=== PATIENT | female | born 1935 | race Caucasian/White ===

== ENCOUNTER 2017-05-01 18:14 | Observation (INO) | payer MEDICARE, MEDICAID ==
[2017-05-01 18:22] VITALS: BMI 24.2
--- NOTE | 2017-05-01 19:56 | C.PDOC ---
History Of Present Illness 81 y/o female sent to ED from [facility] for evaluation of abdominal pain and abnormal blood work. Pmhx left femur fracture, seizures and dementia. Pt currently denies any pain. History limited due to clinical condition. Time Seen by Provider: 05/01/17 19:55 Chief Complaint (Nursing): Abnormal Labs History Per: Patient History/Exam Limitations: clinical condition Severity: None Pain Scale Rating Of: 0 Recent travel outside of the [place]: No Additional History Per: [facility] Past Medical History Reviewed: Historical Data, Nursing Documentation, Vital Signs Vital Signs: Last Vital Signs Temp 97.7 F 05/01/17 22:15 Pulse 70 05/01/17 22:13 Resp 16 05/01/17 22:13 BP 152/59 H 05/01/17 22:13 Pulse Ox 98 05/01/17 22:15 - Medical History PMH: Anemia, CAD, CVA (affecting left side of body), Dementia, Diabetes, HTN, Hypercholesterolemia, Osteoporosis, Seizures, TIA - [facility] Procedures DX ULTRASOUND-HEART (09/28/14) INFLUENZA VACCINATION (09/28/14) INSERTION OF INFUSION DEV INTO INF VENA CAVA, PERC APPROACH (01/27/16) REPOSITION LEFT UPPER FEMUR WITH INTRAMED FIX, OPEN APPROACH (01/28/17) Family History: States: Unknown Family Hx - Social History Hx Tobacco Use: No Hx Alcohol Use: No Hx Substance Use: No - Immunization History Hx Tetanus Toxoid Vaccination: No Hx Influenza Vaccination: Yes (01/27/2017) Hx Pneumococcal Vaccination: No Review Of Systems Review Of Systems: ROS cannot be obtained secondary to pt's inabilty to answer questions. Gastrointestinal: Negative for: Abdominal Pain Physical Exam - Physical Exam Appears: Non-toxic Skin: Warm, Dry, No Rash Head: Atraumatic, Normacephalic Neck: Supple Chest: Symmetrical Cardiovascular: Rhythm Regular, No Murmur Respiratory: No Rales, No Rhonchi, No Wheezing Gastrointestinal/Abdominal: Soft, No Tenderness Extremity: Capillary Refill (<2 seconds), No Swelling, Other (Left hip nontender , flexed and externally rotated. Left knee with arthritic changes, no obvious pain) Pulses: Left Dorsalis Pedis: Normal, Right Dorsalis Pedis: Normal Neurological/Psych: No Oriented x3 (x2) ED Course And Treatment - Laboratory Results Result Diagrams: 05/01/17 20:43 05/01/17 20:43 ECG: Interpreted By Me, Viewed By Me ECG Rhythm: Nonspecific Changes O2 Sat by Pulse Oximetry: 100 (room air) Pulse Ox Interpretation: Normal - Other Rad kub X-Ray: Interpreted by Me, Viewed By Me Interpretation: lots of stool , no obstr or free air Disposition Discussed With : Quin Dhaliwal Comment: accepted the pt on his service and took over the care at 9:46 PM Doctor Will See Patient In The: Hospital Counseled Patient/Family Regarding: Studies Performed, Diagnosis - Disposition Disposition: HOSPITALIZED Disposition Time: 19:56 Condition: FAIR - Clinical Impression Clinical Impression: Abdominal pain, Anemia, Dehydration - Scribe Statement The provider has reviewed the documentation as recorded by the Vipin Pittman Provider Attestation: All medical record entries made by the Vipin were at my direction and personally dictated by me. I have reviewed the chart and agree that the record accurately reflects my personal performance of the history, physical exam, medical decision making, and the department course for this patient. I have also personally directed, reviewed, and agree with the discharge instructions and disposition. Decision To Admit - Pt Status Changed To: Hospital Disposition Of: Observation - . Bed Request Type: Regular Admitting Physician: Quin Dhaliwal Patient Diagnosis: Abdominal pain, Anemia, Dehydration
[2017-05-01 20:50] LABS: BASO # 0.1 K/uL (0.0-0.2); BASO % 0.8 % (0.0-2.0); EOS # 0.9 K/uL (0.0-0.7); EOS % 5.6 % (0.0-4.0); LYMPH # 2.6 K/uL (1.0-4.3); MEAN CELL VOLUME 79.8 fL (81.0-99.0); MEAN CORPUSCULAR HEMOGLOBIN 24.9 pg (27.0-31.0); MEAN CORPUSCULAR HGB CONC 31.2 g/dL (33.0-37.0); MEAN PLATELET VOLUME 6.8 fL (7.2-11.7); MONO # 1.3 K/uL (0.0-0.8); MONO % 8.3 % (0.0-10.0); RED CELL DISTRIBUTION WIDTH 14.3 % (11.5-14.5); WHITE BLOOD COUNT 15.3 K/uL (4.8-10.8)
[2017-05-01] MEDS: Sodium Chloride 0.9% 1,000 ML IV SCH (20:56)
[2017-05-01] MEDS ORDERED: Sodium Chloride 0.9% 1,000 ML ONE (20:56)
[2017-05-01 21:32] LABS: POTASSIUM 4.8 mmol/L (3.6-5.2)
[2017-05-01 21:34] LABS: BILIRUBIN,TOTAL 0.6 mg/dL (0.2-1.3)
[2017-05-01 21:35] LABS: ALB/GLOB RATIO 0.9 (1.0-2.1); CALCIUM 8.5 mg/dl (8.6-10.4); TOTAL PROTEIN 6.5 g/dL (6.3-8.3)
[2017-05-01] MEDS ORDERED: Diclofenac Sodium Delayed Release 50 mg EC Tab PO PRN (22:28)
[2017-05-02 02:07] VITALS: O2SAT 100
[2017-05-02] MEDS: Sodium Chloride 0.9% 1,000 ML IV SCH ×2 (07:22→16:15)
--- NOTE | 2017-05-02 07:58 | CP.PCM.CON ---
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 [employer] pit recorder [id number] utilized to converse with patient. 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 The patient cannot tell me why she was sent to the hospital and is unsure where she is presently. She denies any abdominal pain and continues to state that her main concern is left knee pain which has been ongoing for 3-4 months. Denies any falls recently following her last admission. Lab work performed in the ED does reveal a microcytic anemia (7.2 with MCV 79.8) , downtrending from prior admission in January (HGB 9 at that time) as well as JAKOB with Cr 1.5. Of note, patient has been on Diclofenac TID for knee pain. The patient denies any dark or bloody stools and states she is moving her bowels regularly. Plain film of the abdomen does reveal constipation and fecal retention. PMHx: See HPI PSHx: L hip ORIF and intramedullary peritrochanteric rodding (01/2017) FHx: Unable to assess Social: Denies tobacco, EtOH or illicit drug use Endo: Denies prior evaluations Review of Systems - Review of Systems Systems not reviewed;Unavailable: Dementia (limited 2/2 dementia) - Constitutional Constitutional: absent: Chills, Fever - Gastrointestinal Gastrointestinal: absent: Abdominal Pain, Change in Bowel Habits, Constipation, Diarrhea, Dyspepsia, Dysphagia, Hematemesis, Hematochezia, Melena, Nausea, Vomiting - Genitourinary Genitourinary: absent: Dysuria, Urinary Frequency, Urinary Urgency - Musculoskeletal Musculoskeletal: Joint Swelling, Muscle Weakness, Stiffness, Other (left knee pain/swelling) Past Patient History - Past Medical History & Family History Past Medical History?: Yes - Past Social History Smoking Status: Never Smoked - CARDIAC Hx Hypercholesterolemia: Yes Hx Hypertension: Yes - PULMONARY Hx Respiratory Disorders: No - NEUROLOGICAL Hx Dementia: Yes Hx Seizures: Yes Hx Transient Ischemic Attacks (TIA): Yes - HEENT Hx HEENT Problems: No - RENAL Hx Chronic Kidney Disease: No - ENDOCRINE/METABOLIC Hx Diabetes Mellitus Type 2: Yes - HEMATOLOGICAL/ONCOLOGICAL Hx Anemia: Yes - INTEGUMENTARY Hx Dermatological Problems: No - MUSCULOSKELETAL/RHEUMATOLOGICAL Hx Fractures: Yes Hx Osteoporosis: Yes - GASTROINTESTINAL Hx Gastrointestinal Disorders: Yes Hx Gastroesophageal Reflux: Yes (WITHOUT ESOPHAGITIS) - GENITOURINARY/GYNECOLOGICAL Hx Genitourinary Disorders: Yes Hx Urinary Tract Infection: Yes - PSYCHIATRIC Hx Substance Use: No - SURGICAL HISTORY Hx Surgeries: Yes Hx Joint Replacement: Yes Other/Comment: LEFT HIP ARTIFICIAL JOINT - 02/01/2017 - ANESTHESIA Hx Anesthesia: Yes Hx Anesthesia Reactions: No Hx Malignant Hyperthermia: No Meds Allergies/Adverse Reactions: Allergies Allergy/AdvReac Type Severity Reaction Status Date / Time No Known Allergies Allergy Verified 05/01/17 18:21 - Medications Medications: Current Medications Aspirin (Ecotrin) 81 mg PO DAILY [facility] Atenolol (Tenormin) 50 mg PO DAILY [facility] Clonidine HCl (Catapres) 0.2 mg PO TID [facility] Clopidogrel Bisulfate (Plavix) 75 mg PO DAILY [facility] Diclofenac Sodium (Voltaren) 75 mg PO TID PRN PRN Reason: Pain, Mild (1-3) Last Admin: 05/02/17 04:14 Dose: 75 mg Docusate Sodium (Colace) 100 mg PO BID [facility] Glipizide (Glucotrol Xl) 2.5 mg PO QAM [facility] Home Med (Melatonin [Melatonin]) 10 mg PO HS [facility] Hydrochlorothiazide (Microzide) 12.5 mg PO DAILY [facility] Sodium Chloride (Sodium Chloride 0.9%) 1,000 mls @ 100 mls/hr IV .Q10H [facility] Last Admin: 05/02/17 07:22 Dose: Not Given Levetiracetam (Keppra) 500 mg PO BID [facility] Losartan Potassium (Cozaar) 50 mg PO DAILY [facility] Pantoprazole Sodium (Protonix Inj) 40 mg IVP DAILY [facility] Phenytoin (Dilantin) 100 mg PO TID [facility] Rosuvastatin Calcium (Crestor) 10 mg PO HS [facility] Spironolactone (Aldactone) 50 mg PO DAILY [facility] Zolpidem Tartrate (Ambien) 5 mg PO HS PRN PRN Reason: Insomnia Last Admin: 05/02/17 01:23 Dose: 5 mg Physical Exam - Constitutional Appears: No Acute Distress, Confused - Eye Exam Eye Exam: EOMI, PERRL - ENT Exam ENT Exam: Mucous Membranes Dry - Respiratory Exam Respiratory Exam: Clear to Auscultation Bilateral. absent: Rales, Rhonchi, Wheezes - Cardiovascular Exam Cardiovascular Exam: RRR, +S1, +S2 - GI/Abdominal Exam GI & Abdominal Exam: Normal Bowel Sounds, Soft. absent: Distended, Firm, Guarding, Organomegaly, Rigid, Tenderness - Extremities Exam Extremities exam: Positive for: joint swelling, tenderness Additional comments: significant swelling, deformity noted in the left knee, limited in ROM; LUE 0/5 - Neurological Exam Neurological exam: Altered - Psychiatric Exam Psychiatric exam: Agitated, Anxious - Skin Skin Exam: Dry, Warm Results - Vital Signs Recent Vital Signs: Last Vital Signs Temp 97.7 F 05/02/17 02:06 Pulse 70 05/02/17 02:06 Resp 20 05/02/17 02:06 BP 177/54 H 05/02/17 02:06 Pulse Ox 100 05/02/17 02:06 - Labs Result Diagrams: 05/01/17 20:43 05/01/17 20:43 Labs: Laboratory Results - last 24 hr 05/02/17 06:21 POC Glucose (mg/dL) 133 H Assessment & Plan - Assessment and Plan (Free Text) Assessment: Patient is an 81yo Gujarati speaking female with PMHx significant for recent left hip intertrochanteric fx requiring ORIF and intramedullary peritrochanteric rodding (01/2017), DMT2, HTN, 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, seizure d/o, vascular dementia, left frontal meningioma, cholelithiasis, 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 who presented [place] for anemia noted on routine lab work and abdominal pain but is presently only complaining of knee pain -Impaction fracture of left distal femur -JAKOB -Abdominal pain, resolved -Cholelithiasis, with large stone 2.1cm -Microcytic anemia -Subtherapeutic on dilantin -Prior CVA, on plavix -Vascular dementia -HTN -DMT2 -Osteoporosis Plan: -Discontinue all NSAIDs in setting of prior abdominal pain, microcytic anemia and JAKOB; consider discontinuation of ARB, diuretics as well in this setting and consider nephrology evaluation -D/C protonix given h/o osteoporosis and JAKOB; H2 nicola PRN -Abdominal U/S ordered and reviewed - pending official read - by my interpretation appears to have large gallstone in GB; consider surgical evaluation if needed; asymptomatic at present -Check Hepatitis serologies -Check Iron level, TIBC, Ferritin, Transferrin -Type and screen in case of needed transfusion -CT left knee reviewed; recommend orthopedic evaluation for impacted femur -The patient would not be a candidate for routine screening colonoscopy but in the setting of microcytic anemia, she would benefit from EGD/colonoscopy evaluation on an elective basis as there is no active bleeding noted presently and her other medical issues are more pressing at this time - Date & Time Date: 05/02/17 Time: 07:30 <Elmer Gaspar - Last Filed: 05/02/17 11:28> Meds - Medications Medications: Current Medications Aspirin (Ecotrin) 81 mg PO DAILY [facility] Last Admin: 05/02/17 10:16 Dose: 81 mg Atenolol (Tenormin) 50 mg PO DAILY [facility] Last Admin: 05/02/17 10:16 Dose: 50 mg Clonidine HCl (Catapres) 0.2 mg PO TID [facility] Last Admin: 05/02/17 10:16 Dose: 0.2 mg Clopidogrel Bisulfate (Plavix) 75 mg PO DAILY [facility] Last Admin: 05/02/17 10:15 Dose: 75 mg Docusate Sodium (Colace) 100 mg PO BID [facility] Last Admin: 05/02/17 10:16 Dose: 100 mg Famotidine (Pepcid) 20 mg PO BID PRN PRN Reason: Dyspepsia Last Admin: 05/02/17 10:16 Dose: 20 mg Glipizide (Glucotrol Xl) 2.5 mg PO QAM [facility] Hydrochlorothiazide (Microzide) 12.5 mg PO DAILY [facility] Last Admin: 05/02/17 10:16 Dose: 12.5 mg Sodium Chloride (Sodium Chloride 0.9%) 1,000 mls @ 100 mls/hr IV .Q10H [facility] Last Admin: 05/02/17 07:22 Dose: Not Given Levetiracetam (Keppra) 500 mg PO BID [facility] Losartan Potassium (Cozaar) 50 mg PO DAILY [facility] Last Admin: 05/02/17 10:16 Dose: 50 mg Phenytoin (Dilantin) 100 mg PO TID [facility] Last Admin: 05/02/17 10:16 Dose: 100 mg Rosuvastatin Calcium (Crestor) 10 mg PO HS [facility] Spironolactone (Aldactone) 50 mg PO DAILY [facility] Last Admin: 05/02/17 10:16 Dose: 50 mg Zolpidem Tartrate (Ambien) 5 mg PO HS PRN PRN Reason: Insomnia Last Admin: 05/02/17 01:23 Dose: 5 mg Results - Vital Signs Recent Vital Signs: Last Vital Signs Temp 97.7 F 05/02/17 02:06 Pulse 70 05/02/17 02:06 Resp 20 05/02/17 02:06 BP 177/54 H 05/02/17 02:06 Pulse Ox 100 05/02/17 02:06 - Labs Result Diagrams: 05/01/17 20:43 05/01/17 20:43 Labs: Laboratory Results - last 24 hr 05/02/17 06:21 POC Glucose (mg/dL) 133 H Attending/Attestation - Attestation I have personally seen and examined this patient.: Yes I have fully participated in the care of the patient.: Yes I have reviewed all pertinent clinical information: Yes Notes (Text): Patient seen and examined with GI fellow. Agree with his note as documented above with the following additions/exceptions. This is an 81 year old female with h/o recent ORIF, HTN, diabetes, prior stroke, seizure d/o, cholelithiasis [facility]. She is found to have impacted fracture of L knee. She is a poor historian, but denies any current abdominal pain, nausea or vomiting. Her is present at bedside to corroborate history--she previously had symptoms of abdominal pain, but none currently. No bloody bowel movements. She is found to have microcytic anemia. Recommend anemia work up with iron studies, stool for occult blood. She has elevated Alk P/AST, will check hepatitis panel and abdominal sonogram. She may ultimately benefit from endoscopic evaluation of anemia (no reported prior EGD/ colonoscopy), which can be done on an elective basis. Follow up orthopedic recommendations for distal femur fracture. 05/02/17 11:28
[2017-05-02] MEDS ORDERED: Diclofenac Sodium Delayed Release 75 mg EC Tab PO PRN (08:42)
--- NOTE | 2017-05-02 09:13 | CT ---
PROCEDURE: HISTORY: pain, poss fx COMPARISON: None TECHNIQUE: FINDINGS: Severe impaction fracture of the distal femur with volar displacement of the femoral shaft.. Accompanying joint effusion with severe tricompartmental degenerative changes with joint space narrowing, spur formation and multiple loose bodies. No other acute fracture deformity is observed. IMPRESSION: Severe impaction fracture of the distal femur.
[2017-05-02] MEDS: Phenytoin 100 mg/4 ml Oral Susp UD PO SCH ×3 (10:16→18:55)
--- NOTE | 2017-05-02 10:49 | US ---
HISTORY: eval liver parenchyma, gallbladder COMPARISON: None. TECHNIQUE: Sonographic evaluation of the abdomen. FINDINGS: LIVER: Measures cm. Normal echogenicity of the liver parenchyma. No mass. No intrahepatic bile duct dilatation. GALLBLADDER: Gallstones. No wall thickening or pericholecystic fluid. COMMON BILE DUCT: Measures mm. No stones. No dilatation. PANCREAS: Unremarkable as visualized. No mass. No ductal dilatation. RIGHT KIDNEY: Measures cm. Normal echogenicity. No calculus, mass, or hydronephrosis. LEFT KIDNEY: Measures cm. Normal echogenicity. No calculus, mass, or hydronephrosis. SPLEEN: Normal in size and contour. No mass. AORTA: No aneurysmal dilatation. IVC: Unremarkable. OTHER FINDINGS: None. IMPRESSION: Cholelithiasis.
--- NOTE | 2017-05-02 11:23 | CP.PCM.HP ---
Past Patient History - Past Medical History & Family History Past Medical History?: Yes - Past Social History Smoking Status: Never Smoked - CARDIAC Hx Hypercholesterolemia: Yes Hx Hypertension: Yes - PULMONARY Hx Respiratory Disorders: No - NEUROLOGICAL Hx Dementia: Yes Hx Seizures: Yes Hx Transient Ischemic Attacks (TIA): Yes - HEENT Hx HEENT Problems: No - RENAL Hx Chronic Kidney Disease: No - ENDOCRINE/METABOLIC Hx Diabetes Mellitus Type 2: Yes - HEMATOLOGICAL/ONCOLOGICAL Hx Anemia: Yes - INTEGUMENTARY Hx Dermatological Problems: No - MUSCULOSKELETAL/RHEUMATOLOGICAL Hx Fractures: Yes Hx Osteoporosis: Yes - GASTROINTESTINAL Hx Gastrointestinal Disorders: Yes Hx Gastroesophageal Reflux: Yes (WITHOUT ESOPHAGITIS) - GENITOURINARY/GYNECOLOGICAL Hx Genitourinary Disorders: Yes Hx Urinary Tract Infection: Yes - PSYCHIATRIC Hx Substance Use: No - SURGICAL HISTORY Hx Surgeries: Yes Hx Joint Replacement: Yes Other/Comment: LEFT HIP ARTIFICIAL JOINT - 02/01/2017 - ANESTHESIA Hx Anesthesia: Yes Hx Anesthesia Reactions: No Hx Malignant Hyperthermia: No Meds Allergies/Adverse Reactions: Allergies Allergy/AdvReac Type Severity Reaction Status Date / Time No Known Allergies Allergy Verified 05/01/17 18:21 Physical Exam - Constitutional Appears: Well - Head Exam Head Exam: ATRAUMATIC, NORMAL INSPECTION, NORMOCEPHALIC - Eye Exam Eye Exam: EOMI, Normal appearance, PERRL Pupil Exam: NORMAL ACCOMODATION, PERRL - ENT Exam ENT Exam: Mucous Membranes Moist, Normal Exam - Neck Exam Neck exam: Positive for: Normal Inspection - Respiratory Exam Respiratory Exam: Decreased Breath Sounds - Cardiovascular Exam Cardiovascular Exam: REGULAR RHYTHM, +S1, +S2 - GI/Abdominal Exam GI & Abdominal Exam: Diminished Bowel Sounds, Soft - Rectal Exam Rectal Exam: Deferred Results - Vital Signs Recent Vital Signs: Last Vital Signs Temp 97.7 F 05/02/17 02:06 Pulse 70 05/02/17 02:06 Resp 20 05/02/17 02:06 BP 177/54 H 05/02/17 02:06 Pulse Ox 100 05/02/17 02:06 - Labs Result Diagrams: 05/01/17 20:43 05/01/17 20:43 Labs: Laboratory Results - last 24 hr 05/02/17 06:21 POC Glucose (mg/dL) 133 H
[2017-05-02] MEDS: levETIRAcetam 100 mg/ml (5ml) Oral Syringe PO SCH ×3 (11:30→20:59)
[2017-05-02] MEDS: GlipiZIDE 2.5 mg SR Tab PO SCH (11:31)
--- NOTE | 2017-05-02 13:42 | RAD ---
HISTORY: pain COMPARISON: No prior. FINDINGS: BOWEL: Normal. No obstruction. No free air. Mild constipation is noted. BONES: Internal fixation seen at the left hip and proximal femur. OTHER FINDINGS: Diffuse vascular calcification. IMPRESSION: Nonspecific bowel gas pattern. Mild constipation.
--- NOTE | 2017-05-02 13:57 | RAD ---
PROCEDURE: Left Knee Radiographs. HISTORY: Pain. COMPARISON: None. FINDINGS: BONES: There is acute comminuted and displaced fracture at the distal left femur. JOINTS: No evidence of dislocation. Advanced osteoarthritic changes. JOINT EFFUSION: Possible small joint effusion. OTHER FINDINGS: None. IMPRESSION: Acute comminuted and displaced fracture at the distal left femur. Advanced osteoarthritic changes.
--- NOTE | 2017-05-02 13:59 | RAD ---
PROCEDURE: Left Hip X-ray Radiographs. HISTORY: s/p hip ORIF COMPARISON: Comparison is made to the previous study dated 01/29/2017 FINDINGS: BONES: Again seen are hardware at the left hip and proximal femur. There are comminuted fracture at the left humeral intertrochanteric region. JOINTS: Mild osteoarthritic changes P SOFT TISSUES: Normal. OTHER FINDINGS: None. IMPRESSION: No significant interval change since the previous exam. Status post hardware insertion at the proximal left femur and femoral neck due to prior fracture at the base of the left femur neck.
--- NOTE | 2017-05-02 14:02 | RAD ---
PROCEDURE: AP and lateral views of the left femur. HISTORY: left distal femur fx COMPARISON: Comparison is made to the previous same-day exam. TECHNIQUE: AP and lateral four views of the left femur were obtained. FINDINGS: There is acute comminuted and displaced fracture at the distal left femur just above the femoral condyle. Internal fixation and hardware are again seen at the left humeral neck. IMPRESSION: Acute comminuted and displaced fracture at the distal left femur just above the femoral condyles. Internal fixation and hardware are again seen at the old intertrochanteric femur fracture.
[2017-05-02 17:43] LABS: BASO % 0.4 % (0.0-2.0); EOS # 0.3 K/uL (0.0-0.7); EOS % 2.3 % (0.0-4.0); HEMATOCRIT 21.9 % (34.0-47.0); LYMPH % 16.7 % (20.0-40.0); MEAN CELL VOLUME 79.5 fL (81.0-99.0); MEAN CORPUSCULAR HEMOGLOBIN 26.1 pg (27.0-31.0); MEAN CORPUSCULAR HGB CONC 32.8 g/dL (33.0-37.0); MEAN PLATELET VOLUME 6.7 fL (7.2-11.7); MONO # 0.8 K/uL (0.0-0.8); RED CELL DISTRIBUTION WIDTH 14.7 % (11.5-14.5)
[2017-05-02 17:55] LABS: IRON 39 ug/dL (37-170)
[2017-05-02 20:07] LABS: CHLORIDE 107 mmol/L (98-107); POTASSIUM 4.1 mmol/L (3.6-5.2); SODIUM 135 mmol/L (132-148)
[2017-05-02 20:10] LABS: ALB/GLOB RATIO 0.8 (1.0-2.1); ALKALINE PHOSPHATASE 168 U/L (38-126); ALT/SGPT 24 U/L (9-52); AST/SGOT 45 U/L (14-36); BILIRUBIN,TOTAL 0.6 mg/dL (0.2-1.3); BLOOD UREA NITROGEN 37 mg/dL (7-17); CALCIUM 8.1 mg/dl (8.6-10.4); CARBON DIOXIDE 17 mmol/L (22-30); GFR AFRICAN-AMERICAN > 60; GLUCOSE,RANDOM 131 mg/dL (65-105)
[2017-05-02] MEDS ORDERED: Home Med 1 UNIT (Melatonin [Melatonin] 10 MG) PO SCH ×2 (22:00)
[2017-05-03] MEDS: Sodium Chloride 0.9% 1,000 ML IV SCH ×3 (02:00→11:52)
[2017-05-03 02:34] VITALS: RESP 20
--- NOTE | 2017-05-03 07:39 | CP.PCM.PN ---
Subjective - Date & Time of Evaluation Date of Evaluation: 05/03/17 Time of Evaluation: 07:29 - Subjective Subjective: Patient seen and examined. No acute events overnight. She has dementia and is not able to participate in meaningful conversation, though she does deny abdominal pain, nausea, vomiting which was verified with nursing staff. No bowel movements overnight. She is incontinent of urine, tolerating PO diet. Review of vitals from today are normal. Review of systems not able to be performed given patient with dementia. Objective - Vital Signs/Intake and Output Vital Signs (last 24 hours): Temp Pulse Resp BP Pulse Ox 97.6 F 74 20 110/55 L 100 05/03/17 02:30 05/03/17 02:30 05/03/17 02:30 05/03/17 02:30 05/02/17 16:00 Intake and Output: 05/03/17 05/03/17 06:59 18:59 Intake Total 1885 Balance 1885 - Medications Medications: Current Medications Aspirin (Ecotrin) 81 mg PO DAILY [facility] Last Admin: 05/02/17 10:16 Dose: 81 mg Atenolol (Tenormin) 50 mg PO DAILY [facility] Last Admin: 05/02/17 10:16 Dose: 50 mg Clonidine HCl (Catapres) 0.2 mg PO TID [facility] Last Admin: 05/02/17 18:56 Dose: 0.2 mg Clopidogrel Bisulfate (Plavix) 75 mg PO DAILY [facility] Last Admin: 05/02/17 10:15 Dose: 75 mg Docusate Sodium (Colace) 100 mg PO BID [facility] Last Admin: 05/02/17 18:56 Dose: 100 mg Famotidine (Pepcid) 20 mg PO BID PRN PRN Reason: Dyspepsia Last Admin: 05/02/17 10:16 Dose: 20 mg Glipizide (Glucotrol Xl) 2.5 mg PO QAM [facility] Last Admin: 05/02/17 11:31 Dose: 2.5 mg Hydrochlorothiazide (Microzide) 12.5 mg PO DAILY [facility] Last Admin: 05/02/17 10:16 Dose: 12.5 mg Sodium Chloride (Sodium Chloride 0.9%) 1,000 mls @ 100 mls/hr IV .Q10H [facility] Last Admin: 05/03/17 06:02 Dose: 100 mls/hr Levetiracetam (Keppra) 500 mg PO BID [facility] Last Admin: 05/02/17 20:59 Dose: 500 mg Losartan Potassium (Cozaar) 50 mg PO DAILY [facility] Last Admin: 05/02/17 10:16 Dose: 50 mg Phenytoin (Dilantin) 100 mg PO TID [facility] Last Admin: 05/02/17 18:55 Dose: 100 mg Rosuvastatin Calcium (Crestor) 10 mg PO HS [facility] Last Admin: 05/02/17 21:08 Dose: 10 mg Spironolactone (Aldactone) 50 mg PO DAILY [facility] Last Admin: 05/02/17 10:16 Dose: 50 mg Zolpidem Tartrate (Ambien) 5 mg PO HS PRN PRN Reason: Insomnia Last Admin: 05/02/17 01:23 Dose: 5 mg - Labs Labs: 05/02/17 17:23 05/02/17 20:00 PT 11.2 SECONDS (9.7-12.2) 05/01/17 20:43 INR 1.0 05/01/17 20:43 APTT 25 SECONDS (21-34) 05/01/17 20:43 - Constitutional Appears: Non-toxic, No Acute Distress - Head Exam Head Exam: NORMAL INSPECTION - Eye Exam Eye Exam: EOMI, Normal appearance - ENT Exam ENT Exam: Mucous Membranes Moist - Respiratory Exam Respiratory Exam: Clear to Ausculation Bilateral - Cardiovascular Exam Cardiovascular Exam: REGULAR RHYTHM, +S1, +S2 - GI/Abdominal Exam GI & Abdominal Exam: Soft, Normal Bowel Sounds Additional comments: non tender to palpation in four quadrants - Extremities Exam Additional comments: L leg immobilized, no RLE edema - Skin Skin Exam: Dry, Intact, Normal Color, Warm Assessment and Plan - Assessment and Plan (Free Text) Assessment: HTN / DM CVA on plavix Seizure disorder Recent L hip fracture, currently has acute L distal femur fracture Vascular dementia Microcytic anemia Abdominal pain - resolved. Abdominal US reviewed by me showing cholelithiasis. Plan: - Diet as tolerated - H/H stable, s/p 1 unit PRBC transfusion, continue to monitor. No overt signs of GI bleeding noted. - LFTs stable, continue to monitor, viral hepatitis panel negative - Obtain stool occult blood - Follow up orthopedic recommendations given acute fracture and lower extremity pain - Patient would certainly benefit from endoscopic evaluation, however will defer for time being given absence of overt bleeding and patient currently on plavix. Suggest outpatient follow up after resolution of acute orthopedic issues. Will sign off case, please reconsult as necessary, thank you.
[2017-05-03 09:11] LABS: MEAN CORPUSCULAR HEMOGLOBIN 27.4 pg (27.0-31.0); MEAN CORPUSCULAR HGB CONC 33.5 g/dL (33.0-37.0); MEAN PLATELET VOLUME 6.5 fL (7.2-11.7); RED CELL DISTRIBUTION WIDTH 15.9 % (11.5-14.5); WHITE BLOOD COUNT 15.3 K/uL (4.8-10.8)
[2017-05-03 09:12] LABS: MEAN CELL VOLUME 81.9 fL (81.0-99.0)
[2017-05-03] MEDS: levETIRAcetam 100 mg/ml (5ml) Oral Syringe PO SCH (10:08)
[2017-05-03] MEDS: Phenytoin 100 mg/4 ml Oral Susp UD PO SCH ×2 (10:08→13:59)
[2017-05-03] MEDS: GlipiZIDE 2.5 mg SR Tab PO SCH (10:08)
--- NOTE | 2017-05-03 13:55 | CP.PCM.PN ---
Subjective - Date & Time of Evaluation Date of Evaluation: 05/03/17 Time of Evaluation: 14:38 - Subjective Subjective: Patient sleeping, comfortable. When awakened points to left knee. Review of Systems - Review of Systems Systems not reviewed;Unavailable: Dementia Objective - Vital Signs/Intake and Output Vital Signs (last 24 hours): Temp Pulse Resp BP Pulse Ox 98.1 F 79 20 150/61 100 05/03/17 08:00 05/03/17 08:00 05/03/17 08:00 05/03/17 08:00 05/03/17 08:00 Intake and Output: 05/03/17 05/03/17 06:59 18:59 Intake Total 1885 Balance 1885 - Medications Medications: Current Medications Aspirin (Ecotrin) 81 mg PO DAILY [facility] Last Admin: 05/03/17 10:08 Dose: 81 mg Atenolol (Tenormin) 50 mg PO DAILY [facility] Last Admin: 05/03/17 10:08 Dose: 50 mg Clonidine HCl (Catapres) 0.2 mg PO TID [facility] Last Admin: 05/03/17 13:50 Dose: Not Given Clopidogrel Bisulfate (Plavix) 75 mg PO DAILY [facility] Last Admin: 05/03/17 10:08 Dose: 75 mg Docusate Sodium (Colace) 100 mg PO BID [facility] Last Admin: 05/03/17 10:08 Dose: 100 mg Famotidine (Pepcid) 20 mg PO BID PRN PRN Reason: Dyspepsia Last Admin: 05/03/17 10:08 Dose: 20 mg Glipizide (Glucotrol Xl) 2.5 mg PO QAM [facility] Last Admin: 05/03/17 10:08 Dose: 2.5 mg Hydrochlorothiazide (Microzide) 12.5 mg PO DAILY [facility] Last Admin: 05/03/17 10:08 Dose: 12.5 mg Sodium Chloride (Sodium Chloride 0.9%) 1,000 mls @ 100 mls/hr IV .Q10H [facility] Last Admin: 05/03/17 11:52 Dose: Not Given Levetiracetam (Keppra) 500 mg PO BID [facility] Last Admin: 05/03/17 10:08 Dose: 500 mg Losartan Potassium (Cozaar) 50 mg PO DAILY [facility] Last Admin: 05/03/17 10:08 Dose: 50 mg Phenytoin (Dilantin) 100 mg PO TID [facility] Last Admin: 05/03/17 10:08 Dose: 100 mg Rosuvastatin Calcium (Crestor) 10 mg PO HS [facility] Last Admin: 05/02/17 21:08 Dose: 10 mg Spironolactone (Aldactone) 50 mg PO DAILY [facility] Last Admin: 05/03/17 10:08 Dose: 50 mg Zolpidem Tartrate (Ambien) 5 mg PO HS PRN PRN Reason: Insomnia Last Admin: 05/02/17 01:23 Dose: 5 mg - Labs Labs: 05/03/17 08:54 05/02/17 20:00 PT 11.2 SECONDS (9.7-12.2) 05/01/17 20:43 INR 1.0 05/01/17 20:43 APTT 25 SECONDS (21-34) 05/01/17 20:43 - Constitutional Appears: Well, No Acute Distress - Respiratory Exam Respiratory Exam: NORMAL BREATHING PATTERN - Cardiovascular Exam Additional comments: +DP pulse no obvious pain with homans - Extremities Exam Additional comments: knee immob intact, sensation appears intact, toes warm - Neurological Exam Neurological Exam: Alert, Awake Neuro motor strength exam: Left Upper Extremity: 5 (+DF/PF/toes flex/ext) - Psychiatric Exam Additional comments: calm - Skin Skin Exam: Dry, Intact, Normal Color, Warm Assessment and Plan (1) Displaced fracture of distal epiphysis of left femur Assessment & Plan: Improved position in immobilizer appears subacute on imaging Dr. Corbin consult to follow, risks/corazon/alt discussed with patient's via translation device. 's concern is having ambulate again. He states she has not ambulated since prior to the hip surgery. Advised potentially patient may not walk again, and will need extensive PT now and when fx is healed. PT eval pending, patient deferred yesterday due to anemia now s/p transfusion the distal femur fracture would explain the anemia, GI eval noted Per Dr. Corbin, non operative and patient may be transferred back to [place] with immobilization, NWB, and will follow up. Status: Acute
--- NOTE | 2017-05-03 15:30 | CP.PCM.PN ---
Subjective - Date & Time of Evaluation Date of Evaluation: 05/03/17 Time of Evaluation: 15:30 Objective - Vital Signs/Intake and Output Vital Signs (last 24 hours): Temp Pulse Resp BP Pulse Ox 98.1 F 79 20 150/61 100 05/03/17 08:00 05/03/17 08:00 05/03/17 08:00 05/03/17 08:00 05/03/17 08:00 Intake and Output: 05/03/17 05/03/17 06:59 18:59 Intake Total 1885 Balance 1885 - Medications Medications: Current Medications Aspirin (Ecotrin) 81 mg PO DAILY [facility] Last Admin: 05/03/17 10:08 Dose: 81 mg Atenolol (Tenormin) 50 mg PO DAILY [facility] Last Admin: 05/03/17 10:08 Dose: 50 mg Clonidine HCl (Catapres) 0.2 mg PO TID [facility] Last Admin: 05/03/17 13:50 Dose: Not Given Clopidogrel Bisulfate (Plavix) 75 mg PO DAILY [facility] Last Admin: 05/03/17 10:08 Dose: 75 mg Docusate Sodium (Colace) 100 mg PO BID [facility] Last Admin: 05/03/17 10:08 Dose: 100 mg Famotidine (Pepcid) 20 mg PO BID PRN PRN Reason: Dyspepsia Last Admin: 05/03/17 10:08 Dose: 20 mg Glipizide (Glucotrol Xl) 2.5 mg PO QAM [facility] Last Admin: 05/03/17 10:08 Dose: 2.5 mg Hydrochlorothiazide (Microzide) 12.5 mg PO DAILY [facility] Last Admin: 05/03/17 10:08 Dose: 12.5 mg Sodium Chloride (Sodium Chloride 0.9%) 1,000 mls @ 100 mls/hr IV .Q10H [facility] Last Admin: 05/03/17 11:52 Dose: Not Given Levetiracetam (Keppra) 500 mg PO BID [facility] Last Admin: 05/03/17 10:08 Dose: 500 mg Losartan Potassium (Cozaar) 50 mg PO DAILY [facility] Last Admin: 05/03/17 10:08 Dose: 50 mg Phenytoin (Dilantin) 100 mg PO TID [facility] Last Admin: 05/03/17 13:59 Dose: 100 mg Rosuvastatin Calcium (Crestor) 10 mg PO HS [facility] Last Admin: 05/02/17 21:08 Dose: 10 mg Spironolactone (Aldactone) 50 mg PO DAILY [facility] Last Admin: 05/03/17 10:08 Dose: 50 mg Zolpidem Tartrate (Ambien) 5 mg PO HS PRN PRN Reason: Insomnia Last Admin: 05/02/17 01:23 Dose: 5 mg - Labs Labs: 05/03/17 08:54 05/02/17 20:00 PT 11.2 SECONDS (9.7-12.2) 05/01/17 20:43 INR 1.0 05/01/17 20:43 APTT 25 SECONDS (21-34) 05/01/17 20:43
[2017-05-03 16:29] VITALS: BP 117/67; PULSE 68; TEMP 97.9
--- NOTE | 2017-05-03 17:16 | CP.PCM.PN ---
Subjective - Date & Time of Evaluation Date of Evaluation: 05/03/17 Time of Evaluation: 10:00 - Subjective Subjective: clinically same Objective - Vital Signs/Intake and Output Vital Signs (last 24 hours): Temp Pulse Resp BP Pulse Ox 97.9 F 68 20 117/67 100 05/03/17 16:00 05/03/17 16:00 05/03/17 16:00 05/03/17 16:00 05/03/17 16:00 Intake and Output: 05/03/17 05/03/17 06:59 18:59 Intake Total 1885 Balance 1885 - Medications Medications: Current Medications Aspirin (Ecotrin) 81 mg PO DAILY [facility] Last Admin: 05/03/17 10:08 Dose: 81 mg Atenolol (Tenormin) 50 mg PO DAILY [facility] Last Admin: 05/03/17 10:08 Dose: 50 mg Clonidine HCl (Catapres) 0.2 mg PO TID [facility] Last Admin: 05/03/17 13:50 Dose: Not Given Clopidogrel Bisulfate (Plavix) 75 mg PO DAILY [facility] Last Admin: 05/03/17 10:08 Dose: 75 mg Docusate Sodium (Colace) 100 mg PO BID [facility] Last Admin: 05/03/17 10:08 Dose: 100 mg Famotidine (Pepcid) 20 mg PO BID PRN PRN Reason: Dyspepsia Last Admin: 05/03/17 10:08 Dose: 20 mg Glipizide (Glucotrol Xl) 2.5 mg PO QAM [facility] Last Admin: 05/03/17 10:08 Dose: 2.5 mg Hydrochlorothiazide (Microzide) 12.5 mg PO DAILY [facility] Last Admin: 05/03/17 10:08 Dose: 12.5 mg Sodium Chloride (Sodium Chloride 0.9%) 1,000 mls @ 100 mls/hr IV .Q10H [facility] Last Admin: 05/03/17 11:52 Dose: Not Given Levetiracetam (Keppra) 500 mg PO BID [facility] Last Admin: 05/03/17 10:08 Dose: 500 mg Losartan Potassium (Cozaar) 50 mg PO DAILY [facility] Last Admin: 05/03/17 10:08 Dose: 50 mg Phenytoin (Dilantin) 100 mg PO TID [facility] Last Admin: 05/03/17 13:59 Dose: 100 mg Rosuvastatin Calcium (Crestor) 10 mg PO HS [facility] Last Admin: 05/02/17 21:08 Dose: 10 mg Spironolactone (Aldactone) 50 mg PO DAILY [facility] Last Admin: 05/03/17 10:08 Dose: 50 mg Zolpidem Tartrate (Ambien) 5 mg PO HS PRN PRN Reason: Insomnia Last Admin: 05/02/17 01:23 Dose: 5 mg - Labs Labs: 05/03/17 08:54 05/02/17 20:00 PT 11.2 SECONDS (9.7-12.2) 05/01/17 20:43 INR 1.0 05/01/17 20:43 APTT 25 SECONDS (21-34) 05/01/17 20:43
== END 2017-05-03 20:30 | disposition home or self-care (01) ==
LOC: C.ER 18:14 → C.9E 21:44 → C.5T 05-02 01:12
PROVIDERS: ADMIT Internal Medicine Nephrology; ATTEND Internal Medicine Nephrology
DX: E86.0 Dehydration (principal); G40.909 Epilepsy, unspecified, not intractable, without status epilepticus; F01.50 Vascular dementia, unspecified severity, without behavioral disturbance, psychotic disturbance, mood disturbance, and anxiety; E78.00 Pure hypercholesterolemia, unspecified; E11.9 Type 2 diabetes mellitus without complications; D50.9 Iron deficiency anemia, unspecified; I10 Essential (primary) hypertension; I25.10 Atherosclerotic heart disease of native coronary artery without angina pectoris; K59.00 Constipation, unspecified
CPT/HCPCS: 36415; 36430; 73501; 73552; 73560; 73700; 74000; 76700; 80053; 80074; 80185; 82728; 82948; 84466; 85025; 85027; 85610; 85730; 86850; 86900; 86920; 96374; 97162; 97166; 97530; 99284; G0378; G8978; G8979; G8987; G8988; J1885; J7040; P9051

== ENCOUNTER 2018-09-29 13:19 | Inpatient (IN) | payer MEDICARE, OTHER ==
[2018-09-29 13:19] VITALS: BMI 24.2
--- NOTE | 2018-09-29 14:01 | C.PDOC ---
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 Patient is a poor historian due to dementia. Time Seen by Provider: 09/29/18 13:22 Chief Complaint (Nursing): Lower Extremity Problem/Injury History Per: Patient, EMS History/Exam Limitations: clinical condition Onset/Duration Of Symptoms: Hrs Current Symptoms Are (Timing): Still Present Recent travel outside of the [place]: No Past Medical History Reviewed: Historical Data, Nursing Documentation, Vital Signs Vital Signs: Last Vital Signs Temp 97.6 F 09/29/18 13:21 Pulse 69 09/29/18 13:31 Resp 20 09/29/18 13:31 BP 141/54 L 09/29/18 13:31 Pulse Ox 100 09/29/18 13:21 - Medical History PMH: Anemia, CAD, CVA (affecting left side of body), Dementia, Diabetes, Fractures, HTN, Hypercholesterolemia, Osteoporosis, Seizures, TIA - [facility] Procedures DX ULTRASOUND-HEART (09/28/14) INFLUENZA VACCINATION (09/28/14) INSERTION OF INFUSION DEV INTO INF VENA CAVA, PERC APPROACH (01/27/16) REPOSITION LEFT UPPER FEMUR WITH INTRAMED FIX, OPEN APPROACH (01/28/17) Family History: States: Unknown Family Hx - Social History Hx Tobacco Use: No Hx Alcohol Use: No Hx Substance Use: No - Immunization History Hx Tetanus Toxoid Vaccination: No Hx Influenza Vaccination: Yes (01/27/2017) Hx Pneumococcal Vaccination: No Review Of Systems Review Of Systems: ROS cannot be obtained secondary to pt's inabilty to answer questions. (Due to dementia) Physical Exam - Physical Exam Appears: Non-toxic, In Acute Distress, Confused Skin: Warm, Dry, No Rash Head: Atraumatic, Normacephalic Eye(s): bilateral: Normal Inspection, PERRL, EOMI Oral Mucosa: Moist ([place]) Neck: Normal ROM, Supple Chest: Symmetrical, No Tenderness Cardiovascular: Rhythm Regular, No Murmur Respiratory: Normal Breath Sounds, No Rales, No Rhonchi, No Wheezing Gastrointestinal/Abdominal: Bowel Sounds (Active/Normal ), Soft, No Tenderness Back: Normal Inspection, No CVA Tenderness Extremity: No Pedal Edema, Other (Has a wound to left great toe. Not drainging. No Erythema. No Palpable DP/PD pulses but faint doppler pulses. ) Neurological/Psych: Other (Awake, alert, oriented to self. ) Gait: Other (Left sided paraplegia) ED Course And Treatment O2 Sat by Pulse Oximetry: 100 (RA) Pulse Ox Interpretation: Normal Medical Decision Making Medical Decision Making: Plan: * Blood work * CT Angiography Progress: 13:55: * Spoke to Hola Bauer who accepted patient to his service and requested to have Chelsea Clay for consultation. 14:02: * Spoke with Chelsea Clay which recommended CTA iliofemoral. And instructed for no heprin to be given. EKG: * Normal sinus Rhythm at 61 bpm * Normal intervals * LAD * No ST elevations * Some artifact throughout * Non-specific T-wave changes * Q-waves in inferior leads Disposition - Disposition Forms: [facility] (Cuban) - Scribe Statement The provider has reviewed the documentation as recorded by the Scribifeoma Quintero All medical record entries made by the Scribe were at my direction and persona lly dictated by me. I have reviewed the chart and agree that the record accurately reflects my personal performance of the history, physical exam, medical decision making, and the department course for this patient. I have also personally directed, reviewed, and agree with the discharge instructions and disposition.
[2018-09-29 14:41] LABS: BASO # 0.1 K/uL (0.0-0.2); BASO % 0.8 % (0.0-2.0); EOS # 0.3 K/uL (0.0-0.7); EOS % 3.5 % (0.0-4.0); HEMOGLOBIN 13.3 g/dL (11.0-16.0); LYMPH # 2.5 K/uL (1.0-4.3); LYMPH % 33.7 % (20.0-40.0); MEAN CELL VOLUME 79.3 fL (81.0-99.0); MEAN CORPUSCULAR HEMOGLOBIN 25.7 pg (27.0-31.0); MEAN CORPUSCULAR HGB CONC 32.4 g/dL (33.0-37.0); MEAN PLATELET VOLUME 7.4 fL (7.2-11.7); MONO # 0.5 K/uL (0.0-0.8); MONO % 7.2 % (0.0-10.0); NEUT % 54.8 % (50.0-75.0); RBC 5.17 Mil/uL (3.80-5.20); RED CELL DISTRIBUTION WIDTH 14.5 % (11.5-14.5); WHITE BLOOD COUNT 7.3 K/uL (4.8-10.8)
[2018-09-29 14:50] LABS: ALB/GLOB RATIO 1.2 (1.0-2.1); ALT/SGPT 25 U/L (9-52); AST/SGOT 21 U/L (14-36); BLOOD UREA NITROGEN 13 mg/dL (7-17); CALCIUM 8.5 mg/dl (8.6-10.4); GFR NON-AFRICAN AMERICAN > 60
[2018-09-29 14:55] LABS: INR 1.1; PROTHROMBIN TIME 11.9 SECONDS (9.7-12.2)
[2018-09-29] MEDS ORDERED: Iodixanol 320 mg/ml 150 ml Bottle IV ONE (15:12)
--- NOTE | 2018-09-29 20:14 | CP.PCM.CON ---
History of Present Illness - History of Present Illness History of Present Illness: Vascular surgery consult for Dr. Perez Consulted for: chronic left big toe wound Pt is a poor historian d/t dementia, most of history was obtained by grandson at bedside and chart Pt is an 83F with PMH including CAD, CVA with residual left hemiparesis, CHF, DM, HTN, HLD, who came to ER from the skilled nursing for a chronic wound of the left big toe. Patient is generally bedbound d/t hemiparesis and osteoporosis/arthritis. Patient's gradson is uncertain when the wound was first noticed, but believes it has only been there for a few days. Patient denies any fevers, chills, abdominal pain, chest pain, but complains of pain in her left knee and in her left great toe. PMH: CAD, CVA with residual left hemiparesis, CHF, DM, HTN, HLD, osteoporosis, seizures PSH: left fermur ORIF All: NKDA Social: denies any tobacco, ETOH, or illicit substance use Review of Systems - Review of Systems All systems: reviewed and no additional remarkable complaints except (as per HPI) Past Patient History - Past Medical History & Family History Past Medical History?: Yes Past Family History: Reviewed and not pertinent - Past Social History Smoking Status: Never Smoked Alcohol: None Drugs: Denies Home Situation {Lives}: [facility] - CARDIAC Hx Hypercholesterolemia: Yes Hx Hypertension: Yes - PULMONARY Hx Respiratory Disorders: No - NEUROLOGICAL Hx Dementia: Yes Hx Seizures: Yes Hx Transient Ischemic Attacks (TIA): Yes - HEENT Hx HEENT Problems: No - RENAL Hx Chronic Kidney Disease: No - ENDOCRINE/METABOLIC Hx Diabetes Mellitus Type 2: Yes - HEMATOLOGICAL/ONCOLOGICAL Hx Anemia: Yes - INTEGUMENTARY Hx Dermatological Problems: No - MUSCULOSKELETAL/RHEUMATOLOGICAL Hx Fractures: Yes Hx Osteoporosis: Yes - GASTROINTESTINAL Hx Gastrointestinal Disorders: Yes Hx Gastroesophageal Reflux: Yes (WITHOUT ESOPHAGITIS) - GENITOURINARY/GYNECOLOGICAL Hx Genitourinary Disorders: Yes Hx Urinary Tract Infection: Yes - PSYCHIATRIC Hx Substance Use: No - SURGICAL HISTORY Hx Surgeries: Yes Hx Joint Replacement: Yes Other/Comment: LEFT HIP ARTIFICIAL JOINT - 02/01/2017 - ANESTHESIA Hx Anesthesia: Yes Hx Anesthesia Reactions: No Hx Malignant Hyperthermia: No Meds Allergies/Adverse Reactions: Allergies Allergy/AdvReac Type Severity Reaction Status Date / Time No Known Allergies Allergy Verified 05/01/17 18:21 - Medications Medications: Current Medications Aspirin (Ecotrin) 81 mg PO DAILY [facility] Atenolol (Tenormin) 50 mg PO DAILY [facility] Clonidine HCl (Catapres) 0.2 mg PO TID [facility] Clopidogrel Bisulfate (Plavix) 75 mg PO DAILY [facility] Docusate Sodium (Colace) 100 mg PO BID [facility] Famotidine (Pepcid) 20 mg PO BID PRN PRN Reason: Dyspepsia Glipizide (Glucotrol Xl) 2.5 mg PO QAM [facility] Hydrochlorothiazide (Microzide) 12.5 mg PO DAILY [facility] Levetiracetam (Keppra) 500 mg PO BID [facility] Pentoxifylline (Pentoxil) 400 mg PO TID [facility] Phenytoin (Dilantin) 100 mg PO TID [facility] Rosuvastatin Calcium (Crestor) 10 mg PO HS [facility] Spironolactone (Aldactone) 50 mg PO DAILY [facility] Zolpidem Tartrate (Ambien) 5 mg PO HS PRN PRN Reason: Insomnia Physical Exam - Constitutional Appears: Non-toxic, No Acute Distress, Chronically Ill - Head Exam Head Exam: ATRAUMATIC, NORMOCEPHALIC - Eye Exam Eye Exam: Normal appearance. absent: Conjunctival injection, Scleral icterus - ENT Exam ENT Exam: Mucous Membranes Moist, Normal Oropharynx - Respiratory Exam Respiratory Exam: NORMAL BREATHING PATTERN. absent: Accessory Muscle Use, Respiratory Distress - Cardiovascular Exam Cardiovascular Exam: RRR - GI/Abdominal Exam GI & Abdominal Exam: Soft. absent: Distended - Extremities Exam Extremities exam: Negative for: calf tenderness, pedal edema Additional comments: left great toe dorsal aspect with necrotic skin extending from toenail to pr oximal phalanx, no purulent drainage BL Weak palpable TP, non-palpable DP BL feet warm, normal color - Neurological Exam Neurological exam: Alert - Psychiatric Exam Psychiatric exam: Normal Affect, Normal Mood - Skin Skin Exam: Dry, Normal Color, Warm Additional comments: except as noted above Results - Vital Signs Recent Vital Signs: Last Vital Signs Temp 98.3 F 09/29/18 16:49 Pulse 64 09/29/18 16:49 Resp 18 09/29/18 16:49 BP 165/63 H 09/29/18 16:49 Pulse Ox 97 09/29/18 16:49 - Labs Result Diagrams: 09/29/18 14:33 09/29/18 14:33 Labs: Laboratory Results - last 24 hr 09/29/18 09/29/18 09/29/18 14:33 14:33 14:33 WBC 7.3 D RBC 5.17 Hgb 13.3 D Hct 41.0 MCV 79.3 L D MCH 25.7 L MCHC 32.4 L RDW 14.5 Plt Count 322 MPV 7.4 Neut % (Auto) 54.8 Lymph % (Auto) 33.7 [place] % (Auto) 7.2 Eos % (Auto) 3.5 Baso % (Auto) 0.8 Neut # (Auto) 4.0 Lymph # (Auto) 2.5 [place] # (Auto) 0.5 Eos # (Auto) 0.3 Baso # (Auto) 0.1 PT 11.9 INR 1.1 APTT 34 Sodium 136 Potassium 3.8 Chloride 97 L Carbon Dioxide 27 Anion Gap 16 BUN 13 Creatinine 0.5 L Est GFR ( Amer) > 60 Est GFR (Non-Af Amer) > 60 Random Glucose 102 Calcium 8.5 L Total Bilirubin 0.1 L AST 21 ALT 25 Alkaline Phosphatase 151 H Total Protein 7.5 Albumin 4.0 Globulin 3.5 Albumin/Globulin Ratio 1.2 Assessment & Plan - Assessment and Plan (Free Text) Assessment: 83F with extensive PMH, with chronic left great toe wound, possible PVD Plan: Obtain a CTA to assess the BL LE vasculature Recommend podiatry consult for local wound care IV antibiotics, PRN pain medication per primary team PT No surgical intervention at this time--further recommedations pending CTA results Discussed with Dr. Perez, who agrees with above Juliette Guillaume, PGY2
[2018-09-29] MEDS: Phenytoin 100 mg/4 ml Oral Susp UD PO SCH (20:26)
[2018-09-29] MEDS: levETIRAcetam 100 mg/ml (5ml) Oral Syringe PO SCH (20:26)
[2018-09-30] MEDS: GlipiZIDE 2.5 mg SR Tab PO SCH (09:37)
[2018-09-30] MEDS: Phenytoin 100 mg/4 ml Oral Susp UD PO SCH ×3 (09:38→18:31)
[2018-09-30] MEDS: levETIRAcetam 100 mg/ml (5ml) Oral Syringe PO SCH (10:17)
--- NOTE | 2018-09-30 11:54 | CP.PCM.PN ---
Subjective - Date & Time of Evaluation Date of Evaluation: 09/30/18 Time of Evaluation: 06:45 - Subjective Subjective: Patient examined at bedside. No acute events overnight. ROS unobtainable as patient is non verbal. Objective - Vital Signs/Intake and Output Vital Signs (last 24 hours): Temp Pulse Resp BP Pulse Ox 97.5 F L 53 L 18 186/68 H 100 09/30/18 08:33 09/30/18 09:34 09/30/18 08:33 09/30/18 08:33 09/30/18 08:33 Intake and Output: 09/30/18 09/30/18 06:59 18:59 Output Total 200 Balance -200 - Medications Medications: Current Medications Aspirin (Ecotrin) 81 mg PO DAILY [facility] [place] Last Admin: 09/30/18 09:35 Dose: 81 mg Atenolol (Tenormin) 50 mg PO DAILY [facility] Last Admin: 09/30/18 09:36 Dose: 50 mg Clonidine HCl (Catapres) 0.2 mg PO TID [facility] Last Admin: 09/30/18 09:36 Dose: 0.2 mg Clopidogrel Bisulfate (Plavix) 75 mg PO DAILY [facility] Last Admin: 09/30/18 09:36 Dose: 75 mg Docusate Sodium (Colace) 100 mg PO BID [facility] Last Admin: 09/30/18 09:36 Dose: 100 mg Famotidine (Pepcid) 20 mg PO BID PRN PRN Reason: Dyspepsia Glipizide (Glucotrol Xl) 2.5 mg PO QAM [facility] Last Admin: 09/30/18 09:37 Dose: 2.5 mg Heparin Sodium (Porcine) (Heparin) 5,000 units SC Q12 [facility] [place] Last Admin: 09/30/18 09:36 Dose: 5,000 units Hydrochlorothiazide (Microzide) 12.5 mg PO DAILY [facility] Last Admin: 09/30/18 09:36 Dose: 12.5 mg Influenza Virus Vaccine (Fluzone Quad [id number]) 60 mcg IM .ONCE ONE Stop: 10/01/18 10:01 Levetiracetam (Keppra) 500 mg PO BID [facility] [place] Last Admin: 09/30/18 10:17 Dose: 500 mg Pentoxifylline (Pentoxil) 400 mg PO TID [facility] [place] Last Admin: 09/30/18 09:37 Dose: 400 mg Phenytoin (Dilantin) 100 mg PO TID [facility] Last Admin: 09/30/18 09:38 Dose: 100 mg Pneumococcal Polyvalent Vaccine (Pneumovax 23 Vaccine) 0.5 ml IM .ONCE ONE Stop: 10/01/18 10:01 Rosuvastatin Calcium (Crestor) 10 mg PO HS [facility] Last Admin: 09/29/18 21:56 Dose: 10 mg Spironolactone (Aldactone) 50 mg PO DAILY [facility] Last Admin: 09/30/18 09:37 Dose: 50 mg Zolpidem Tartrate (Ambien) 5 mg PO HS PRN PRN Reason: Insomnia - Labs Labs: 09/29/18 14:33 09/29/18 14:33 PT 11.9 SECONDS (9.7-12.2) 09/29/18 14:33 INR 1.1 09/29/18 14:33 APTT 34 SECONDS (21-34) 09/29/18 14:33 - Constitutional Appears: Non-toxic, No Acute Distress - Head Exam Head Exam: ATRAUMATIC, NORMAL INSPECTION, NORMOCEPHALIC - ENT Exam ENT Exam: Mucous Membranes Moist, Normal Exam - Respiratory Exam Respiratory Exam: NORMAL BREATHING PATTERN. absent: Respiratory Distress - Cardiovascular Exam Cardiovascular Exam: REGULAR RHYTHM. absent: Tachycardia - GI/Abdominal Exam GI & Abdominal Exam: Soft. absent: Distended - Extremities Exam Extremities Exam: absent: Pedal Edema Additional comments: left foot bandaged, dressing clean/dry/intact. Warm to touch - Neurological Exam Neurological Exam: Awake. absent: Oriented x3 - Skin Skin Exam: Dry, Warm Assessment and Plan - Assessment and Plan (Free Text) Assessment: 83 year old female admitted with left great toe wound, likely 2/2 PVD Plan: -CT angio with runoff shows stenosis/occlusion of left and right posterior/anterior tibial arteries -possible angio tomorrow or sunday -preop accordingly -GI ppx -DVT ppx -medical management per primary Discussed with Dr. Chris Hampton
--- NOTE | 2018-09-30 12:16 | CT ---
Date of service: 09/29/2018 PROCEDURE: CT Angiography Abdomen, Pelvis and Lower Extremity with Contrast HISTORY: possible occlusion in left PT and AT arteries COMPARISON: None available. TECHNIQUE: Technique: CT angiography of the abdomen, pelvis and bilateral lower extremities performed in the arterial phase of enhancement. Coronal and sagittal reformats, and well as rotating MIP images of the vessels generated at the workstation. Intravenous contrast dose: 150 MILLILITERS VISIPAQUE 320 Radiation dose: Total exam DLP = 2467.06 mGy-cm. This CT exam was performed using one or more of the following dose reduction techniques: Automated exposure control, adjustment of the mA and/or kV according to patient size, and/or use of iterative reconstruction technique. FINDINGS: CT ANGIOGRAPHY: ABDOMINAL AORTA:: There is moderate calcific plaque in the mid aorta without significant stenosis. MAJOR AORTIC BRANCHES: Celiac [place]: No significant stenosis. Mild calcific plaque. Superior mesenteric artery: No significant stenosis. Inferior mesenteric artery: Unremarkable. Renal arteries: Unremarkable. PELVIC ARTERIES: Right Common Iliac: Unremarkable. Right External Iliac: Unremarkable. Right Internal Iliac: Unremarkable. Left Common Iliac: Unremarkable. Left External Iliac: Unremarkable. Left Internal Iliac: Unremarkable. RIGHT LOWER EXTREMITY ARTERIES: Right Common Femoral: Unremarkable. Right Superficial Femoral: Mild plaque in the SFA with short segment area of moderate stenosis in distal SFA. Right Profunda Femoris: Unremarkable. Right Popliteal:Unremarkable. Right Anterior Tibial: Is patent. There is moderate stenosis of the distal anterior tibial artery. Right Tibioperoneal Trunk: Unremarkable. Right Posterior Tibial: Moderate stenosis of the distal posterior tibial artery or possible occlusion. Right Peroneal: Unremarkable. Right dorsalis pedis : Unremarkable. LEFT LOWER EXTREMITY ARTERIES: Left Common Femoral: Unremarkable. Left Superficial Femoral: Moderate plaque in the SFA with mild stenosis in the mid segment. There is a short segment occlusion of the distal SFA with reconstitution of the popliteal artery. Left Profunda Femoris: Unremarkable. Left Popliteal: Unremarkable. Left Anterior Tibial: Patent proximally and in the mid segment. Possible severe stenosis or occlusion of the distal anterior tibial artery. Left Tibioperoneal Trunk: Unremarkable. Left Posterior Tibial: Patent proximally to the mid segment. No contrast is seen within distal segment which may represent severe stenosis or occlusion. Left Peroneal: Unremarkable. Left Dorsalis pedis: Unremarkable. NON-ANGIOGRAPHIC ASPECT OF THE EXAM: LOWER THORAX: Unremarkable. LIVER: Unremarkable. No gross lesion or ductal dilatation. GALLBLADDER AND BILE DUCTS: Large gallstone. The gallbladder is otherwise unremarkable. PANCREAS: Unremarkable. No gross lesion or ductal dilatation. SPLEEN: Unremarkable. ADRENALS: Unremarkable. No mass. KIDNEYS AND URETERS: Unremarkable. No hydronephrosis. No solid mass. STOMACH AND BOWEL: Limited evaluation without PO contrast. No obvious mass. Distention of the rectum. APPENDIX: PERITONEUM: Unremarkable. No free fluid. No free air. LYMPH NODES: Unremarkable. No enlarged lymph nodes. BLADDER: Unremarkable. REPRODUCTIVE: Unremarkable. BONES: No acute fracture. Moderate changes along the appendicular and axial skeleton. OTHER FINDINGS: None. IMPRESSION: CT ANGIOGRAM ABDOMEN/PELVIS: 1. Essentially unremarkable CT angiogram of the abdomen pelvis. There is calcific plaque throughout the abdominal aorta without stenosis or aneurysm. LEFT LOWER EXTREMITY CT ANGIOGRAM: 1. The common femoral artery and profunda femoral artery normal. 2. There is moderate plaque in the SF There is a short segment occlusion of the distal SFA with reconstitution of the popliteal artery. 3. Popliteal artery is unremarkable. 4. Runoff shows a patent peroneal artery. Both the anterior tibial artery posterior tibial artery are patent in the proximal and mid segment. There is possible severe stenosis or occlusion of the anterior tibial artery and posterior tibial artery and distal segments. RIGHT LOWER EXTREMITY CT ANGIOGRAM: 1. The common femoral artery and profunda femoral artery normal. 2. There is mild plaque in the SFA with a short segment area of moderate stenosis and distal SFA. 3. Popliteal artery is unremarkable. 4. Runoff shows a patent peroneal artery. Anterior tibial artery is patent to the distal segment where there is a possible moderate to severe stenosis. The posterior tibial artery likewise is patent to distal segment where the artery is possibly cyst occluded or severely stenotic.
--- NOTE | 2018-09-30 18:08 | CP.PCM.HP ---
Past Patient History - Past Medical History & Family History Past Medical History?: Yes Past Family History: Reviewed and not pertinent - Past Social History Smoking Status: Never Smoked Alcohol: None Drugs: Denies Home Situation {Lives}: Snf - CARDIAC Hx Cardiac Disorders: Yes Hx Hypercholesterolemia: Yes Hx Hypertension: Yes - PULMONARY Hx Respiratory Disorders: No - NEUROLOGICAL Hx Dementia: Yes Hx Seizures: Yes Hx Transient Ischemic Attacks (TIA): Yes - HEENT Hx HEENT Problems: No - RENAL Hx Chronic Kidney Disease: No - ENDOCRINE/METABOLIC Hx Diabetes Mellitus Type 2: Yes - HEMATOLOGICAL/ONCOLOGICAL Hx Anemia: Yes - INTEGUMENTARY Hx Dermatological Problems: No - MUSCULOSKELETAL/RHEUMATOLOGICAL Hx Fractures: Yes Hx Osteoporosis: Yes - GASTROINTESTINAL Hx Gastrointestinal Disorders: Yes Hx Gastroesophageal Reflux: Yes (WITHOUT ESOPHAGITIS) - GENITOURINARY/GYNECOLOGICAL Hx Genitourinary Disorders: Yes Hx Urinary Tract Infection: Yes - PSYCHIATRIC Hx Substance Use: No - SURGICAL HISTORY Hx Surgeries: Yes Hx Joint Replacement: Yes Other/Comment: LEFT HIP ARTIFICIAL JOINT - 02/01/2017 - ANESTHESIA Hx Anesthesia: Yes Hx Anesthesia Reactions: No Hx Malignant Hyperthermia: No Meds Allergies/Adverse Reactions: Allergies Allergy/AdvReac Type Severity Reaction Status Date / Time No Known Allergies Allergy Verified 05/01/17 18:21 Physical Exam - Constitutional Appears: Well - Head Exam Head Exam: ATRAUMATIC, NORMAL INSPECTION, NORMOCEPHALIC - Eye Exam Eye Exam: EOMI, Normal appearance, PERRL Pupil Exam: NORMAL ACCOMODATION, PERRL - ENT Exam ENT Exam: Mucous Membranes Moist, Normal Exam - Neck Exam Neck exam: Positive for: Normal Inspection - Respiratory Exam Respiratory Exam: Decreased Breath Sounds - Cardiovascular Exam Cardiovascular Exam: REGULAR RHYTHM, +S1, +S2 - GI/Abdominal Exam GI & Abdominal Exam: Diminished Bowel Sounds, Soft - Rectal Exam Rectal Exam: Deferred Results - Vital Signs Recent Vital Signs: Last Vital Signs Temp 97.5 F L 09/30/18 08:33 Pulse 53 L 09/30/18 09:34 Resp 18 09/30/18 08:33 BP 145/69 09/30/18 14:13 Pulse Ox 100 09/30/18 08:33 - Labs Result Diagrams: 09/29/18 14:33 09/29/18 14:33 Labs: Laboratory Results - last 24 hr 09/29/18 09/29/18 09/29/18 13:38 17:35 21:24 POC Glucose (mg/dL) 133 H 80 152 H 09/30/18 09/30/18 09:03 12:23 POC Glucose (mg/dL) 97 116 H
[2018-10-01 07:50] LABS: BASO % 0.5 % (0.0-2.0); EOS # 0.2 K/uL (0.0-0.7); EOS % 3.4 % (0.0-4.0); LYMPH # 2.7 K/uL (1.0-4.3); LYMPH % 45.2 % (20.0-40.0); MEAN CELL VOLUME 78.2 fL (81.0-99.0); MEAN CORPUSCULAR HEMOGLOBIN 26.1 pg (27.0-31.0); MEAN CORPUSCULAR HGB CONC 33.4 g/dL (33.0-37.0); MEAN PLATELET VOLUME 7.6 fL (7.2-11.7); MONO # 0.4 K/uL (0.0-0.8); MONO % 6.4 % (0.0-10.0); NEUT # 2.7 K/uL (1.8-7.0); NEUT % 44.5 % (50.0-75.0); NRBC % 0.1 % (0.0-2.0); RBC 4.58 Mil/uL (3.80-5.20); RED CELL DISTRIBUTION WIDTH 14.1 % (11.5-14.5)
[2018-10-01] MEDS ORDERED: Dextrose 5%/0.9% NS 1,000 ML IV ONE (08:25)
[2018-10-01 09:05] LABS: ALB/GLOB RATIO 1.1 (1.0-2.1); ALBUMIN 3.4 g/dL (3.5-5.0); ALT/SGPT 18 U/L (9-52); AST/SGOT 21 U/L (14-36); BLOOD UREA NITROGEN 7 mg/dL (7-17); CALCIUM 8.2 mg/dl (8.6-10.4); GFR NON-AFRICAN AMERICAN > 60
[2018-10-01] MEDS ORDERED: Influenza Vaccine 60 MCG/0.5 ML SYR (3 yr & up) IM ONE (10:00)
[2018-10-01] MEDS ORDERED: Pneumococcal 23-Valent Vaccine IM ONE (10:00)
[2018-10-01] MEDS: GlipiZIDE 2.5 mg SR Tab PO SCH (10:13)
[2018-10-01] MEDS: Phenytoin 100 mg/4 ml Oral Susp UD PO SCH ×3 (10:13→19:10)
[2018-10-01 14:10] LABS: ALBUMIN 3.5 g/dL (3.5-5.0); ALT/SGPT 23 U/L (9-52); AST/SGOT 85 U/L (14-36); BLOOD UREA NITROGEN 6 mg/dL (7-17); CALCIUM 8.7 mg/dl (8.6-10.4); GFR NON-AFRICAN AMERICAN > 60
--- NOTE | 2018-10-01 16:31 | PCM.SURG1 ---
Surgeon's Initial Post Op Note - Surgeon's Notes Surgeon: whit Mechanical Reliability Engineer: 0 Type of Anesthesia: IV Sedation Anesthesia Administered By: nallely Pre-Operative Diagnosis: gagnrene left great toe Operative Findings: distal sfa prox /popliteal occlusion. peroneal major vessel to foot-90% proximal stenosis. perclose right groin Post-Operative Diagnosis: same Operation Performed: aortofemoral angiogram via right groin. selective catherization of left femoral artery. pathway atherectomy/ dcb angioplasty/ stent left sfa. atherectomy and balloon angioplasty of peroneal/ tibial peroneal trunk. perclose right groin Specimen/Specimens Removed: 0 Estimated Blood Loss: EBL {In ML}: 25 Blood Products Given: N/A Drains Used: No Drains Post-Op Condition: Good Date of Surgery/Procedure: 10/01/18 Time of Surgery/Procedure: 16:36
--- NOTE | 2018-10-01 18:09 | CP.PCM.PN ---
Subjective - Date & Time of Evaluation Date of Evaluation: 10/01/18 Time of Evaluation: 11:00 - Subjective Subjective: clinically same Objective - Vital Signs/Intake and Output Vital Signs (last 24 hours): Temp Pulse Resp BP Pulse Ox 98.1 F 60 20 154/68 H 100 10/01/18 07:53 10/01/18 08:00 10/01/18 07:53 10/01/18 07:53 10/01/18 07:53 Intake and Output: 10/01/18 10/01/18 06:59 18:59 Intake Total 410 420 Output Total 1 Balance 409 420 - Medications Medications: Current Medications Aspirin (Ecotrin) 81 mg PO DAILY [facility] Last Admin: 10/01/18 10:16 Dose: 81 mg Atenolol (Tenormin) 50 mg PO DAILY [facility] Last Admin: 10/01/18 10:17 Dose: 50 mg Clonidine HCl (Catapres) 0.2 mg PO TID [facility] Last Admin: 10/01/18 14:04 Dose: Not Given Clopidogrel Bisulfate (Plavix) 75 mg PO DAILY [facility] Last Admin: 10/01/18 10:15 Dose: 75 mg Docusate Sodium (Colace) 100 mg PO BID [facility] Last Admin: 10/01/18 10:00 Dose: Not Given Famotidine (Pepcid) 20 mg PO BID PRN PRN Reason: Dyspepsia Glipizide (Glucotrol Xl) 2.5 mg PO QAM [facility] Last Admin: 10/01/18 10:13 Dose: 2.5 mg Heparin Sodium (Porcine) (Heparin) 5,000 units SC Q12 [facility] Last Admin: 09/30/18 22:04 Dose: Not Given Hydrochlorothiazide (Microzide) 12.5 mg PO DAILY [facility] Last Admin: 10/01/18 10:16 Dose: 12.5 mg Dextrose/Sodium Chloride (Dextrose 5%/0.9% Ns 1000 Ml) 1,000 mls @ 70 mls/hr IV .[id number] ONE Stop: 10/01/18 22:42 Last Admin: 10/01/18 08:45 Dose: 70 mls/hr Levetiracetam (Keppra) 500 mg PO BID [facility] Last Admin: 10/01/18 10:17 Dose: 500 mg Pentoxifylline (Pentoxil) 400 mg PO TID [facility] Last Admin: 10/01/18 14:10 Dose: 400 mg Phenytoin (Dilantin) 100 mg PO TID [facility] Last Admin: 10/01/18 14:10 Dose: 100 mg Rosuvastatin Calcium (Crestor) 10 mg PO HS [facility] Last Admin: 09/30/18 22:04 Dose: Not Given Spironolactone (Aldactone) 50 mg PO DAILY [facility] Last Admin: 10/01/18 10:14 Dose: 50 mg Zolpidem Tartrate (Ambien) 5 mg PO HS PRN PRN Reason: Insomnia - Labs Labs: 10/01/18 07:32 10/01/18 11:17 PT 11.9 SECONDS (9.7-12.2) 09/29/18 14:33 INR 1.1 09/29/18 14:33 APTT 34 SECONDS (21-34) 09/29/18 14:33 - Constitutional Appears: Well - Head Exam Head Exam: ATRAUMATIC, NORMAL INSPECTION, NORMOCEPHALIC - Eye Exam Eye Exam: EOMI, Normal appearance, PERRL Pupil Exam: NORMAL ACCOMODATION, PERRL - ENT Exam ENT Exam: Mucous Membranes Moist, Normal Exam - Neck Exam Neck Exam: Full ROM, Normal Inspection. absent: Lymphadenopathy - Respiratory Exam Respiratory Exam: Decreased Breath Sounds - Cardiovascular Exam Cardiovascular Exam: REGULAR RHYTHM, +S1, +S2 - GI/Abdominal Exam GI & Abdominal Exam: Soft, Diminished Bowel Sounds - Rectal Exam Rectal Exam: Deferred
[2018-10-01] MEDS ORDERED: Labetalol 5mg/ml (4ml) ONE (18:21)
[2018-10-02 01:14] VITALS: RESP 20; TEMP 97.3
--- NOTE | 2018-10-02 05:27 | VAS ---
DATE: 10/01/2018 PREOPERATIVE DIAGNOSIS: Gangrene, left great toe. POSTOPERATIVE DIAGNOSIS: Gangrene, left great toe. PROCEDURE CARRIED OUT: Aortofemoral angiogram via right groin with selective catheterization of left femoral artery, pathway atherectomy of the left superficial femoral artery, balloon angioplasty using drug-coated balloon, and subsequently deployment of the stent in the distal superficial femoral artery, proximal popliteal, and then secondly we performed a pathway atherectomy of the left tibioperoneal trunk, peroneal artery, and a balloon angioplasty of the same. SURGEON: Elias Perez Jr., MD MANUAL ARTS THERAPIST: None. ANESTHESIOLOGIST: Mr. Worrell. ANESTHESIA: Local sedation. INDICATIONS: The patient is an 83-year-old woman, admitted with ischemic ulceration in the left foot, for which she has function, but is impaired because of her previous stroke. OPERATIVE FINDINGS: The aorta, renal arteries, internal iliac arteries, external iliac arteries were with significant peripheral vascular disease. Both common femoral arteries were patent. Superficial femoral and proximal and profunda femoris arteries were patent. On the right side, we did not take detailed pictures due to body habitus. We were unable to include both common on the same. Demonstrated on the left leg, the left superficial femoral artery occluded in the mid portion, reconstituted in the proximal popliteal artery. Below this, there was a primarily single-vessel runoff via the perineal artery, which had a high-grade stenosis over 90% in its proximal segment after trifurcation. Below this, the posterior tibial artery was occluded, segment to the anterior tibial came back on the foot with major vessels elicited peroneal artery. Subsequent to the performance of diagnostic arteriogram, a stiff-angled guidewire was advanced over the aortic bifurcation. A 7-Hebrew sheath was positioned in the proximal portion of the superficial femoral artery. Using road mapping techniques, the lesions were crossed. We then crossed both lesions and heparinized the patient, gave filter wire distally, carried out an atherectomy. Pictures were satisfactory. Films were taken. We then dilated with a 3-mm balloon distally and a 4-mm balloon in the SFA/popliteal. We then deployed a 5-mm stent. The completion pictures showed some areas of dissection and a small AV fistula. We then terminated the procedure. We deployed Perclose device in the groin on the right side. OPERATION CARRIED OUT: 1. Aortofemoral angiogram with selective catheterization of left femoral artery. 2. Pathway atherectomy of the left superficial femoral artery with a drug-coated balloon angioplasty and deployment of stent and also atherectomy of the left peroneal artery with a balloon angioplasty. Perclose device was in the right groin. Elias Perez Jr., MD cc: Meri Dhaliwal MD
[2018-10-02 07:16] LABS: ALBUMIN 3.3 g/dL (3.5-5.0); ALT/SGPT 25 U/L (9-52); AST/SGOT 22 U/L (14-36); BLOOD UREA NITROGEN 10 mg/dL (7-17); CALCIUM 8.2 mg/dl (8.6-10.4); GFR NON-AFRICAN AMERICAN > 60
[2018-10-02 09:04] VITALS: O2SAT 96
[2018-10-02] MEDS: Phenytoin 100 mg/4 ml Oral Susp UD PO SCH ×2 (10:09→13:00)
[2018-10-02] MEDS: GlipiZIDE 2.5 mg SR Tab PO SCH (10:10)
[2018-10-02 12:51] VITALS: BP 120/50; PULSE 65
--- NOTE | 2018-10-02 14:25 | CP.PCM.PN ---
Subjective - Date & Time of Evaluation Date of Evaluation: 10/02/18 Time of Evaluation: 11:25 - Subjective Subjective: Patient seen today comfortable denies any complaints vss and labs reviewed - stable s/p aortofemoral angiogram via right groin. selective catherization of left femoral artery. pathway atherectomy/ dcb angioplasty/ stent left sfa. a therectomy and balloon angioplasty of peroneal/ tibial peroneal trunk. perclose right groin Objective - Vital Signs/Intake and Output Vital Signs (last 24 hours): Temp Pulse Resp BP Pulse Ox 97.3 F L 65 20 120/50 L 96 10/02/18 09:02 10/02/18 12:51 10/02/18 09:02 10/02/18 12:51 10/02/18 09:02 - Medications Medications: Current Medications Aspirin (Ecotrin) 81 mg PO DAILY [facility] Last Admin: 10/02/18 10:14 Dose: 81 mg Atenolol (Tenormin) 50 mg PO DAILY [facility] Last Admin: 10/02/18 10:11 Dose: 50 mg Clonidine HCl (Catapres) 0.2 mg PO TID [facility] Last Admin: 10/02/18 13:00 Dose: 0.2 mg Clopidogrel Bisulfate (Plavix) 75 mg PO DAILY [facility] Last Admin: 10/02/18 10:11 Dose: 75 mg Docusate Sodium (Colace) 100 mg PO BID [facility] Last Admin: 10/02/18 10:11 Dose: 100 mg Famotidine (Pepcid) 20 mg PO BID PRN PRN Reason: Dyspepsia Glipizide (Glucotrol Xl) 2.5 mg PO QAM [facility] Last Admin: 10/02/18 10:10 Dose: 2.5 mg Heparin Sodium (Porcine) (Heparin) 5,000 units SC Q12 [facility] Last Admin: 09/30/18 22:04 Dose: Not Given Hydrochlorothiazide (Microzide) 12.5 mg PO DAILY [facility] Last Admin: 10/02/18 10:11 Dose: 12.5 mg Levetiracetam (Keppra) 500 mg PO BID [facility] Last Admin: 10/02/18 10:10 Dose: 500 mg Pentoxifylline (Pentoxil) 400 mg PO TID [facility] Last Admin: 10/02/18 13:00 Dose: 400 mg Phenytoin (Dilantin) 100 mg PO TID [facility] Last Admin: 10/02/18 13:00 Dose: 100 mg Rosuvastatin Calcium (Crestor) 10 mg PO HS [facility] Last Admin: 10/01/18 21:44 Dose: 10 mg Spironolactone (Aldactone) 50 mg PO DAILY [facility] Last Admin: 10/02/18 10:10 Dose: 50 mg Zolpidem Tartrate (Ambien) 5 mg PO HS PRN PRN Reason: Insomnia - Labs Labs: 10/01/18 07:32 10/02/18 06:37 PT 11.9 SECONDS (9.7-12.2) 09/29/18 14:33 INR 1.1 09/29/18 14:33 APTT 34 SECONDS (21-34) 09/29/18 14:33 Assessment and Plan - Assessment and Plan (Free Text) Assessment: A/P 83 years old female with PMHx of HTN, diabetes, dementia, CAD, CHF, and 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 peroneal major vessel to foot- 90% proximal stenosis. s/p aortofemoral angiogram via right groin. selective catherization of left femoral artery. pathway atherectomy/ dcb angioplasty/ stent left sfa. atherectomy and balloon angioplasty of peroneal/ tibial peroneal trunk. perclose right groin seen by Dr. Wagoner today, d/w surgical team ,cleared for discharge back to [place] [facility]/w Dr. Lopez stable for discharge to [facility] today and Dr. Lopez will follow the patient at [facility] and further management as per Dr. Lopez SW will contact family and arrange transportation
--- NOTE | 2018-10-02 14:51 | CP.PCM.PN ---
Subjective - Date & Time of Evaluation Date of Evaluation: 10/02/18 Time of Evaluation: 10:00 - Subjective Subjective: Surgery: Dr. Perez Pt seen and examined. No acute overnight events. Denies any complaints at this time. States she's hungry and would like to eat more food. Denies nausea/vomiting, fevers/chills, chest pain or SOB. Objective - Vital Signs/Intake and Output Vital Signs (last 24 hours): Temp Pulse Resp BP Pulse Ox 97.3 F L 65 20 120/50 L 96 10/02/18 09:02 10/02/18 12:51 10/02/18 09:02 10/02/18 12:51 10/02/18 09:02 - Medications Medications: Current Medications Aspirin (Ecotrin) 81 mg PO DAILY [facility] Last Admin: 10/02/18 10:14 Dose: 81 mg Atenolol (Tenormin) 50 mg PO DAILY [facility] Last Admin: 10/02/18 10:11 Dose: 50 mg Clonidine HCl (Catapres) 0.2 mg PO TID [facility] Last Admin: 10/02/18 13:00 Dose: 0.2 mg Clopidogrel Bisulfate (Plavix) 75 mg PO DAILY [facility] Last Admin: 10/02/18 10:11 Dose: 75 mg Docusate Sodium (Colace) 100 mg PO BID [facility] Last Admin: 10/02/18 10:11 Dose: 100 mg Famotidine (Pepcid) 20 mg PO BID PRN PRN Reason: Dyspepsia Glipizide (Glucotrol Xl) 2.5 mg PO QAM [facility] Last Admin: 10/02/18 10:10 Dose: 2.5 mg Heparin Sodium (Porcine) (Heparin) 5,000 units SC Q12 [facility] Last Admin: 09/30/18 22:04 Dose: Not Given Hydrochlorothiazide (Microzide) 12.5 mg PO DAILY [facility] Last Admin: 10/02/18 10:11 Dose: 12.5 mg Levetiracetam (Keppra) 500 mg PO BID [facility] Last Admin: 10/02/18 10:10 Dose: 500 mg Pentoxifylline (Pentoxil) 400 mg PO TID [facility] Last Admin: 10/02/18 13:00 Dose: 400 mg Phenytoin (Dilantin) 100 mg PO TID [facility] Last Admin: 10/02/18 13:00 Dose: 100 mg Rosuvastatin Calcium (Crestor) 10 mg PO HS [facility] Last Admin: 10/01/18 21:44 Dose: 10 mg Spironolactone (Aldactone) 50 mg PO DAILY [facility] Last Admin: 10/02/18 10:10 Dose: 50 mg Zolpidem Tartrate (Ambien) 5 mg PO HS PRN PRN Reason: Insomnia - Labs Labs: 10/01/18 07:32 10/02/18 06:37 PT 11.9 SECONDS (9.7-12.2) 09/29/18 14:33 INR 1.1 09/29/18 14:33 APTT 34 SECONDS (21-34) 09/29/18 14:33 - Constitutional Appears: Well, No Acute Distress - Head Exam Head Exam: ATRAUMATIC, NORMOCEPHALIC - Eye Exam Eye Exam: Normal appearance - ENT Exam ENT Exam: Mucous Membranes Moist - Respiratory Exam Respiratory Exam: NORMAL BREATHING PATTERN - Cardiovascular Exam Cardiovascular Exam: RRR - GI/Abdominal Exam GI & Abdominal Exam: Soft - Extremities Exam Additional comments: R groin with dressing, clean/dry/intact/flat. b/l LE warm - Neurological Exam Neurological Exam: Alert, Awake - Skin Skin Exam: Dry, Warm Assessment and Plan - Assessment and Plan (Free Text) Assessment: 83F s/p Angio with atherectomy & L SFA stent; POD#1 Plan: - no further vascular surgery intervention at this time - d/w Dr. Chris Knight
--- NOTE | 2018-10-02 15:13 | CP.PCM.PN ---
Subjective - Date & Time of Evaluation Date of Evaluation: 10/02/18 Time of Evaluation: 10:30 - Subjective Subjective: clinically same Objective - Vital Signs/Intake and Output Vital Signs (last 24 hours): Temp Pulse Resp BP Pulse Ox 97.3 F L 65 20 120/50 L 96 10/02/18 09:02 10/02/18 12:51 10/02/18 09:02 10/02/18 12:51 10/02/18 09:02 Intake and Output: 10/02/18 10/02/18 06:59 18:59 Intake Total 720 Balance 720 - Medications Medications: Current Medications Aspirin (Ecotrin) 81 mg PO DAILY [facility] Last Admin: 10/02/18 10:14 Dose: 81 mg Atenolol (Tenormin) 50 mg PO DAILY [facility] Last Admin: 10/02/18 10:11 Dose: 50 mg Clonidine HCl (Catapres) 0.2 mg PO TID [facility] Last Admin: 10/02/18 13:00 Dose: 0.2 mg Clopidogrel Bisulfate (Plavix) 75 mg PO DAILY [facility] Last Admin: 10/02/18 10:11 Dose: 75 mg Docusate Sodium (Colace) 100 mg PO BID [facility] Last Admin: 10/02/18 10:11 Dose: 100 mg Famotidine (Pepcid) 20 mg PO BID PRN PRN Reason: Dyspepsia Glipizide (Glucotrol Xl) 2.5 mg PO QAM [facility] Last Admin: 10/02/18 10:10 Dose: 2.5 mg Heparin Sodium (Porcine) (Heparin) 5,000 units SC Q12 [facility] Last Admin: 09/30/18 22:04 Dose: Not Given Hydrochlorothiazide (Microzide) 12.5 mg PO DAILY [facility] Last Admin: 10/02/18 10:11 Dose: 12.5 mg Levetiracetam (Keppra) 500 mg PO BID [facility] Last Admin: 10/02/18 10:10 Dose: 500 mg Pentoxifylline (Pentoxil) 400 mg PO TID [facility] Last Admin: 10/02/18 13:00 Dose: 400 mg Phenytoin (Dilantin) 100 mg PO TID [facility] Last Admin: 10/02/18 13:00 Dose: 100 mg Rosuvastatin Calcium (Crestor) 10 mg PO HS [facility] Last Admin: 10/01/18 21:44 Dose: 10 mg Spironolactone (Aldactone) 50 mg PO DAILY [facility] Last Admin: 10/02/18 10:10 Dose: 50 mg Zolpidem Tartrate (Ambien) 5 mg PO HS PRN PRN Reason: Insomnia - Labs Labs: 10/01/18 07:32 10/02/18 06:37 PT 11.9 SECONDS (9.7-12.2) 09/29/18 14:33 INR 1.1 09/29/18 14:33 APTT 34 SECONDS (21-34) 09/29/18 14:33 - Constitutional Appears: Well - Head Exam Head Exam: ATRAUMATIC, NORMAL INSPECTION, NORMOCEPHALIC - Eye Exam Eye Exam: EOMI, Normal appearance, PERRL Pupil Exam: NORMAL ACCOMODATION, PERRL - ENT Exam ENT Exam: Mucous Membranes Moist, Normal Exam - Neck Exam Neck Exam: Full ROM, Normal Inspection. absent: Lymphadenopathy - Respiratory Exam Respiratory Exam: Decreased Breath Sounds - Cardiovascular Exam Cardiovascular Exam: REGULAR RHYTHM, +S1, +S2 - GI/Abdominal Exam GI & Abdominal Exam: Soft, Diminished Bowel Sounds - Rectal Exam Rectal Exam: Deferred
== END 2018-10-02 15:45 | DRG 271 ==
LOC: C.ER 13:19 → C.9E 14:10 → C.6T 16:00 → C.9E 16:06 → C.6T 16:19
PROVIDERS: ADMIT Internal Medicine Nephrology; ATTEND Internal Medicine Nephrology
PROC: 04CL3ZZ Extirpation of Matter from Left Femoral Artery, Percutaneous Approach (ICD-10-PCS; principal; 2018-10-01)
PROC: 047L3D1 Dilation of Left Femoral Artery with Intraluminal Device, using Drug-Coated Balloon, Percutaneous Approach (ICD-10-PCS; 2018-10-01)
PROC: 047U3ZZ Dilation of Left Peroneal Artery, Percutaneous Approach (ICD-10-PCS; 2018-10-01)
PROC: 04CU3ZZ Extirpation of Matter from Left Peroneal Artery, Percutaneous Approach (ICD-10-PCS; 2018-10-01)
DX: E11.52 Type 2 diabetes mellitus with diabetic peripheral angiopathy with gangrene (principal); I69.354 Hemiplegia and hemiparesis following cerebral infarction affecting left non-dominant side; E11.621 Type 2 diabetes mellitus with foot ulcer; L97.529 Non-pressure chronic ulcer of other part of left foot with unspecified severity; I25.10 Atherosclerotic heart disease of native coronary artery without angina pectoris; I50.9 Heart failure, unspecified; I11.0 Hypertensive heart disease with heart failure; F03.90 Unspecified dementia, unspecified severity, without behavioral disturbance, psychotic disturbance, mood disturbance, and anxiety; E78.00 Pure hypercholesterolemia, unspecified; M81.0 Age-related osteoporosis without current pathological fracture; D64.9 Anemia, unspecified; K21.9 Gastro-esophageal reflux disease without esophagitis; Z74.01 Bed confinement status; Z96.642 Presence of left artificial hip joint; Z79.4 Long term (current) use of insulin